=== PATIENT | male | born 1930 | race Caucasian/White ===

== ENCOUNTER 2017-01-13 06:41 | Emergency (ER) | payer MEDICARE, OTHER ==
--- NOTE | 2017-01-13 07:16 | ERNOTE ---
<Jeffrey Jeong - Last Filed: 01/13/17 07:45> Date of Service: 01/13/17 Time Seen by Provider: 01/13/17 07:12 Stated Complaint: CONGESTION Presenting Symptoms:: other - cough weakness Source: patient, family Immunizations: IMMUNIZATION HX Immunizations Up to Date Yes History of Influenza Vaccine Yes Hx Pneumococcal Vaccination No Allergies/Adverse Reactions: Allergies No Known Allergies Allergy (Verified 01/13/17 07:20) Home Medications: HOME MEDICATIONS Amlodipine Besylate/Benazepril [Lotrel 5-20 mg Capsule] 1 cap PO DAILY 01/13/17 [Last Taken Unknown] Furosemide [Lasix] 20 mg PO DAILY #10 tablet 01/13/17 [Last Taken Unknown] metFORMIN HCL [Glucophage] 500 mg PO DAILY 01/13/17 [Last Taken Unknown] - History of Present Ilness Narrative: This is an 86-year-old gentleman who is brought in by his daughter. The patient is actually driving back to [place] today. The patient's daughter is noted that the patient seems to be a little weaker than he was when she last saw him in September. She also says that his voice is not nearly as loud as it used to be. She actually says it's a little weaker right now than it was even 3 days ago. The patient says that he doesn't really notice this. He says in the mornings he does cough up more congestion. He says it's mucus draining from his nose. The patient denies fever or chills nausea or vomiting he denies any other complaints. He actually feels like he is doing okay. Review of Systems - Review of Systems All Other Systems: All systems neg except as marked - Patient's Past Medical History Patient History - Medical: No pertinent hx Patient History - Cardiac/Respiratory: Hypertension Patient History - Cancer: Prostate Patient History - Other: None - Social History Living Situations: home Abuse History: No History of abuse Psych History: No pertinent hx Smoking Status: Former smoker Have you smoked in the past 12 months: No Do you dip or chew tobacco: No Alcohol Use: occasionally Drug Use: none - Immunizations Immunizations Up to Date: Yes Hx Pneumococcal Vaccination: No History of Influenza Vaccine: Yes Physical Exam - Physical Exam General Appearance: Present: wd/wn, alert, no apparent distress, other Head Exam: Present: normal inspection, no evidence of injury Eye Exam: Normal inspection: bilateral, PERRL: bilateral, EOMI: bilateral Ears, Nose, Throat: Present: normal ENT inspection, normal pharynx Neck: Present: normal inspection, nontender Respiratory: Present: no respiratory distress, no accessory muscle use, other - patient has some rhonchi in the right base. He has a frequent cough or clearing of his throat. Cardiovascular/Chest: Present: regular rate, rhythm, normal peripheral pulses, other - patient with a 2/6 systolic murmur best heard over the left lower sternal border Gastrointestinal/Abdominal: Present: normal bowel sounds, nontender, nondistended, soft, no organomegaly Back Exam: Present: normal inspection, normal range of motion Extremity Exam: Present: normal inspection, non-tender, no edema Neurological Exam: Present: alert, oriented, normal mood/affect, no motor/ sensory deficits Skin Exam: Present: normal color, warm/dry Lymphatic Exam: Present: no adenopathy ED Progress - Results and Orders Patient's Lab Results:: I have reviewed the patient's lab results. - Vital Signs Patient's Vital Signs:: I have reviewed the patient's vital signs. Vital Signs: Vital Signs 01/13/17 06:48 Temperature 36.3 C L Pulse Rate 90 Respiratory 18 Rate Blood Pressure 116/67 O2 Sat by Pulse 100 Oximetry - X-Ray X-Ray #1 X-Ray: chest Interpretation: Interp. by me X-ray Comments: There is right lower lobe atelectasis versus complex fluid. CT scan is ordered. - Progress/Reassessment Chief Complaint: Cough - Transfer of Care Physician Sign Out: Jeffrey Jeong Brief History: 86-year-old gentleman with generally decreased energy, coughing, weakness has abnormality on chest x-ray right lower lung Receiving Physician: Pilar Sandoval Pending Results: CT/MRI results, Labs Expected Disposition: Discharge Departure Clinical Impression: Pleural effusion Congestive heart failure Qualifiers: Congestive heart failure type: unspecified congestive heart failure type Congestive heart failure chronicity: unspecified congestive heart failure chronicity Qualified Code(s): I50.9 - Heart failure, unspecified - Departure Disposition: Home self-care Condition: Stable Instructions: Pleural Effusion, Heart Failure, [id number] Additional Instructions: start taking the fluid pill tomorrow morning do not take any metformin (diabetes pill) till you have your kidney numbers checked again call your doctor after the weekend to get the blood test for the kidneys done and to discuss further testing for the fluid on your lungs Prescriptions: Furosemide [Lasix] 20 mg PO DAILY #10 tablet <Pilar Sandoval - Last Filed: 01/13/17 10:13> Immunizations: IMMUNIZATION HX Immunizations Up to Date Yes History of Influenza Vaccine Yes Hx Pneumococcal Vaccination No ED Progress - Results and Orders Patient's Lab Results:: I have reviewed the patient's lab results. - Vital Signs Patient's Vital Signs:: I have reviewed the patient's vital signs. Vital Signs: Vital Signs 01/13/17 01/13/17 06:48 07:41 Temperature 36.3 C L Pulse Rate 90 96 Respiratory 18 20 Rate Blood Pressure 116/67 128/72 O2 Sat by Pulse 100 96 Oximetry - X-Ray X-Ray #1 Interpretation: Reviewed by me - CT/Ultrasound CT/Ultrasound Narrative: CT chest: bilateral pleural effusions and lung compression, cardiomegalie (see report for details) - Progress/Reassessment Progress Note-Subjective: 01/13/17 09:38 discussed test results with patient and daughter, discussed starting a fluid pill for CHF, will start tomorrow as patient is driving back and appears stable , discussed that there is no obvious malignancy but it is not completely excluded, might benefit from diagnostic tap.
[2017-01-13 07:29] LABS: Hematocrit 49.7 % (42.0-52.0); Mean Cell Volume 98.4 fl (78-100); Mean Corpuscular Hemoglobin 33.7 pg (27-31); Mean Corpuscular Hgb Conc 34.2 g/dl (32-36); Mean Platelet Volume 10.9 fl (6.0-9.5); Neutrophil # 4.4 K/mm3 (1.3-6.0); Neutrophil % 65.6 % (42-75.0); Platelet Count 256 K/mm3 (150-450); Red Blood Count 5.05 M/mm3 (4.7-6.0); Red Cell Distribution Width 13.4 % (11.5-14.0); White Blood Count 6.7 K/mm3 (4.0-10.5)
[2017-01-13 07:44] LABS: Albumin * 3.3 gm/dl (3.4-5.0); BUN/Creatinine Ratio 16.8 (9.0-21.6); Bilirubin, Total 0.8 mg/dL (0.0-1.1); Ca. Corrected For Albumin 9.4 mg/dL (8.4-10.2); Calcium * 9.2 mg/dL (7.9-10.9); Carbon Dioxide 24.6 mmol/L (24-32.6); Potassium 4.6 mmol/L (3.4-4.6); Total Protein 7.2 gm/dL (6.2-8.2)
[2017-01-13] MEDS ORDERED: NORMAL SALINE 1,000 ML IV ONE (07:47)
[2017-01-13 10:56] VITALS: BP 139/61
== END 2017-01-13 09:45 | disposition home or self-care (01) ==
LOC: ER 06:41
DX: J90 Pleural effusion, not elsewhere classified (principal); I50.9 Heart failure, unspecified; Z85.46 Personal history of malignant neoplasm of prostate; I10 Essential (primary) hypertension; Z87.891 Personal history of nicotine dependence